=== PATIENT | male | born 1965 | race Hispanic/Latino ===

== ENCOUNTER 2017-02-04 12:01 | Emergency (ER) | payer OTHER ==
[~2017-02-04] VITALS: Ht 165.1 cm; Wt 69.8 kg
[2017-02-04] MEDS ORDERED: HYDROXYZINE HCL25 MG PO (12:26)
[2017-02-04] MEDS ORDERED: PREDNISONE20 MG PO (12:28)
[2017-02-04] MEDS ORDERED: CIMETIDINE800 MG PO (12:28)
[2017-02-04] MEDS ORDERED: METHYLPREDNISOLO4 M1 PO (12:58)
[2017-02-04] MEDS ORDERED: KEFLEX500 MG PO (12:58)
== END 2017-02-04 13:27 | disposition home or self-care (01) ==
LOC: ED 12:01
DX: L23.9 Allergic contact dermatitis, unspecified cause (principal); Z79.52 Long term (current) use of systemic steroids; Z79.899 Other long term (current) drug therapy
CPT/HCPCS: 96372; 99283; J3301

== ENCOUNTER 2018-08-28 09:10 | Day surgery (SDC) | payer OTHER ==
[~2018-08-28] VITALS: Ht 165.1 cm; Wt 72.6 kg
[~2018-08-28 09:10] MED LIST: CIMETIDINE800 MG PO; HYDROXYZINE HCL25 MG PO; KEFLEX500 MG PO; METHYLPREDNISOLO4 M1 PO; PREDNISONE20 MG PO
--- NOTE | 2018-08-28 11:17 | NUR ---
08/28/18 1117 Suzanne Oneal 1051- PT ARRIVES TO PACU AROUSABLE TO VOICE. FALLS INSTANTLY BACK TO SLEEP. RESP EVEN AND UNLABORED. OXYGEN SAT HIGH 90'S ON 3L VIA NC. 1053- OXYGEN TURNED OFF. OXYGEN SAT MID 90'S ON RA. 1055- PT NEEDING ENCOURAGED TO TAKE DEEP BREATHS AND COUGH. PT IS ABLE TO PERFORM THESE TASKS. 1104- PT ROLLED TO HIS BACK. TOLERATED WELL. 1112- PT PLACED BACK ON OXYGEN. 2L VIA NC FOR OXYGEN SAT DECREASING TO MID 80'S ON RA. PT ALSO INSTRUCTED TO COUGH AND DEEP BREATHE. PT IS ABLE TO PERFORM THESE TASKS AND OXYGEN SAT INCREASED TO HIGH 90'S ON 2L VIA NC. 1115- CONTINUING TO ENCOURAGE PT TO COUGH AND DEEP BREATHE. PT IS DROWSY. DENIES NAUSEA, DIZZINESS, OR PAIN.
--- NOTE | 2018-08-28 11:20 | OR ---
[facility] [address], [place] [address] Signed DATE OF OPERATION: 08/28/2018 SURGEON: Rajeev Molina MD PREOPERATIVE DIAGNOSIS: Screening. POSTOPERATIVE DIAGNOSES: 1. Minimal internal and external hemorrhoids. 2. Meco-le-[id number] indurated prostate gland. PROCEDURE: Colonoscopy without biopsy. ESTIMATED BLOOD LOSS: None. INDICATIONS: Ottoniel is a 53-year-old gentleman asked to see me for his initial screening colonoscopy. He told me his dad had of lung cancer and a sister has breast cancer. His mother is obviously very concerned. She had encouraged him to go for his screening colonoscopy. Consequently, he went to see his primary care provider. He said he has no lower GI complaints. To his knowledge, there is no family history of colon cancer or polyps. In the office, I gave Caio booklet on colonoscopy and we looked at that together. He understands the nature of the test along with the risks including, but not limited to gas, bloating, crampy abdominal pain, bleeding, perforation, requiring surgery, and missed diagnosis. He also understands the need for IV conscious sedation. He had expressed understanding and wished to proceed. PROCEDURE NOTE: Ottoniel was taken into our endoscopy suite and placed in the left lateral decubitus position. He was given 5 mg of Versed and 100 mcg of fentanyl for IV sedation. A digital rectal exam was performed and he has very little in the way of any hemorrhoid tissue. Just some minimal external hemorrhoids. He had good sphincter tone. His prostate glands not particularly enlarged, but it is getting indurated. The left is a little more prominent than the right. After this, the adult colonoscope was introduced and advanced all the way around into the cecum under direct visualization of camera without difficulty. His prep was good. The scope was slowly withdrawn. We took pictures throughout for photodocumentation. The appendiceal orifice and the ileocecal valve were easily identified. We saw no pathology throughout his entire colon or Electronically Signed By: RAJEEV MOLINA MD 08/28/18 1120 PATIENT NAME: OTTONIEL HERNANDEZ OPERATIVE REPORT DATE OF : 65 REPORT #: [id number] PHYSICIAN: RAJEEV MOLINA MD PCP: JACQUI LE REPORT IS CONFIDENTIAL AND NOT TO BE RELEASED WITHOUT AUTHORIZATION [address] [address] Signed rectum. Upon retroflexion of the scope, he had just some very tiny internal hemorrhoid tissue. After this, the gas was suctioned out and the colonoscope removed. Ottoniel tolerated the procedure quite well. RECOMMENDATIONS: Ottoniel can follow up in 10 years for repeat colonoscopy. MD IVY Gallego/LINDAL /[id number] cc: MD Jacqui Gallego PA-C Copies: RAJEEV MOLINA MD, ERIKA PAC ~ Electronically Signed By: RAJEEV MOLINA MD 08/28/18 1120 PATIENT NAME: OTTONIEL HERNANDEZ OPERATIVE REPORT DATE OF : 65 REPORT #: [id number] PHYSICIAN: RAJEEV MOLINA MD PCP: JACQUI LE PAC REPORT IS CONFIDENTIAL AND NOT TO BE RELEASED WITHOUT AUTHORIZATION
== END 2018-08-28 11:15 | disposition home or self-care (01) ==
LOC: DS 09:10 → OPS 09:10 → DS 10:30 → OPS 11:15
PROVIDERS: Colon & Rectal Surgery
PROC: 0DJD8ZZ Inspection of Lower Intestinal Tract, Via Natural or Artificial Opening Endoscopic (ICD-10-PCS; principal; 2018-08-28 10:30)
DX: Z12.11 Encounter for screening for malignant neoplasm of colon (principal); K64.4 Residual hemorrhoidal skin tags; K64.8 Other hemorrhoids; N42.89 Other specified disorders of prostate
CPT/HCPCS: 99153; G0500; J2250; J3010; J7120

== ENCOUNTER 2018-09-23 21:10 | Emergency (ER) | payer OTHER ==
[~2018-09-23] VITALS: Ht 165.1 cm; Wt 72.6 kg
--- OUTSIDE RECORDS SUMMARY | ~2018-09-23 | XMS | Clinical Summary ---
Demographics + + + | Address | [address] | | | [place] [address] | + + + | Home Phone | | + + + | Preferred Language | Unknown | + + + | Marital Status | Single | + + + | Anabaptism Affiliation | 1041 | + + + | Race | Unknown | + + + | Ethnic Group | Unknown | + + + Author + + + | Author | [facility] | | | and [place] | + + + | Organization | [facility] | | | and [place] | + + + | Address | Unknown | + + + | Phone | Unavailable | + + + Support + + +---------+ + | Name | Relationship | Address | Phone | + + +---------+ + | ALLEN LUGO | ECON | Unknown | | + + +---------+ + Care Team Providers + +------+ + | Care Health Care Facilities Inspector Name | Role | Phone | + +------+ + PP | Unavailable | + +------+ + Allergies Not on File Medications Not on file Active Problems Not on file Social History + +-------+ +--------+------+ | Tobacco Use | Types | Packs/Day | Years | Date | | | | | Used | | + +-------+ +--------+------+ | Never Assessed | | | | | + +-------+ +--------+------+ + + + | Sex Assigned at | Date Recorded | | | | + + + | Not on file | | + + + + + + + | Job Start Date | Occupation | Industry | + + + + | Not on file | Not on file | Not on file | + + + + + + + + | Travel History | Travel Start | Travel End | + + + + + + | No recent travel history available. | + + Plan of Treatment + + + + + | Health Maintenance | Due Date | Last Done | Comments | + + + + + | Vaccine: | | | | | Dtap/Tdap/Td (1 - | 5 | | | | Tdap) | | | | + + + + + | Vaccine: Zoster (1 | | | | | of 2) | 6 | | | + + + + + | Vaccine: Influenza | | | | | (Season Ended) | 9 | | | + + + + + Results Not on filefrom Last 3 Months"
--- OUTSIDE RECORDS SUMMARY | ~2018-09-23 | XMS | Clinical Summary ---
Demographics + + + | Address | [address] | | | [place] [address] | + + + | Home Phone | | + + + | Preferred Language | Unknown | + + + | Marital Status | Single | + + + | Sikh Affiliation | 1041 | + + + | Race | Unknown | + + + | Ethnic Group | Unknown | + + + Author + + + | Author | [facility] | | | and [place] | + + + | Organization | [facility] | | | and [...] Team Providers + +------+ + | Care Medical Billing Representative Name | Role | Phone | + [...]
[2018-09-23] MEDS ORDERED: TRANSDERM-SCOP1 EACH TD (22:51)
[2018-09-23] MEDS ORDERED: MECLIZINE HCL25 MG PO (22:51)
== END 2018-09-23 23:14 | disposition home or self-care (01) ==
LOC: ED 21:10
DX: R42 Dizziness and giddiness (principal)
CPT/HCPCS: 70450; 80053; 81001; 83690; 85025; 96361; 96374; 99284-25; J2405; J7030